=== PATIENT | male | born 1945 | race Caucasian/White ===

== ENCOUNTER 2020-12-25 13:30 | Inpatient (IN) | payer MEDICARE, OTHER ==
[~2020-12-25 13:30] MED LIST: PROPOFOL 200 MG/20 ML VIAL ONE
[2020-12-25 15:48] VITALS: BMI 24.5
[2020-12-25] MEDS ORDERED: Sotalol HCl 80 MG TAB PO SCH (18:00)
[2020-12-25] MEDS ORDERED: Bisacodyl 5 MG TAB PO PRN (18:20)
[2020-12-25] MEDS ORDERED: Calcium Carbonate 500 MG ChewTAB PO PRN (18:20)
[2020-12-25] MEDS ORDERED: Senokot S 8.6-50 MG TAB PO PRN (18:20)
[2020-12-25] MEDS ORDERED: Acetaminophen 325 MG TAB PO PRN (18:20)
[2020-12-25] MEDS ORDERED: Cefdinir 300 MG CAP PO SCH (20:00)
[2020-12-25] MEDS: ALPRAZolam 1 MG TAB PO SCH (21:12)
[2020-12-25] MEDS: Cefdinir 300 MG CAP PO SCH (21:12)
[2020-12-25] MEDS: Rosuvastatin 20 MG TAB PO SCH (21:12)
[2020-12-25] MEDS: Aspirin 81 mg Enteric Coated Tablet PO SCH (21:12)
[2020-12-25] MEDS: Gabapentin 400 MG CAP PO SCH (21:13)
[2020-12-25] MEDS: Loratadine 10 MG TAB PO SCH (21:13)
[2020-12-25] MEDS: Famotidine 20 MG TAB PO SCH (21:13)
[2020-12-25 23:06] LABS: #Eosinphils 0.5 thou/uL (0.0-0.7); #Lymphocytes 2.2 thou/uL (1.20-3.40); #Monocytes 0.6 thou/uL (0.11-0.59); #Neutrophils 2.6 thou/uL (1.40-6.50); %Basophils 0.6 % (0.0-1.0); %Eosinophils 7.9 % (0.0-10.0); %Lymphocytes 37.1 % (21.0-51.0); %Monocytes 10.2 % (0.0-10.0); %Neutrophils 44.3 % (42.0-75.0); Hemoglobin 12.3 g/dL (14.0-18.0); Mean Corpuscular HGB CONC 33.1 g/dL (32.0-36.0); Mean Corpuscular Hemoglobin 32.6 pg (27.0-31.0); Mean Corpuscular Volume 98.3 fL (78.0-98.0); Mean Platelet Volume 7.9 fL (7.4-10.4); Platelet Count 129 thou/uL (130-400); RBC Distribution Width 10.8 % (11.5-14.5); Red Blood Cell (RBC) Count 3.78 mill/uL (4.70-6.10); White Blood Cell (WBC) Count 5.8 thou/uL (4.8-10.8)
[2020-12-25 23:27] LABS: Anion Gap 12 mmol/L (10-20); BUN (Urea Nitrogen) 17 mg/dL (8.4-25.7); Calc. Creatinine Clearance 71 mL/min (70-130); Calcium 8.7 mg/dL (7.8-10.44); Carbon Dioxide 24 mmol/L (23-31); Chloride 106 mmol/L (98-107); Glucose 92 mg/dL (83-110); Potassium 4.2 mmol/L (3.5-5.1); Sodium 138 mmol/L (136-145)
[2020-12-26 04:20] LABS: SARS-CoV-2 PCR by NAA Not Detected (NotDetected)
[2020-12-26 05:08] LABS: Anion Gap 10 mmol/L (10-20); BUN (Urea Nitrogen) 15 mg/dL (8.4-25.7); Calc. Creatinine Clearance 71 mL/min (70-130); Calcium 8.5 mg/dL (7.8-10.44); Carbon Dioxide 26 mmol/L (23-31); Chloride 108 mmol/L (98-107); Glucose 99 mg/dL (83-110); Magnesium 2.2 mg/dL (1.6-2.6); Potassium 3.9 mmol/L (3.5-5.1); Sodium 140 mmol/L (136-145)
[2020-12-26] MEDS: Sotalol HCl 80 MG TAB PO SCH ×2 (05:23→16:09)
[2020-12-26] MEDS: Cefdinir 300 MG CAP PO SCH ×2 (08:09→19:48)
[2020-12-26] MEDS: Famotidine 20 MG TAB PO SCH ×2 (08:09→19:48)
[2020-12-26] MEDS ORDERED: Cefdinir 300 MG CAP PO SCH (09:00)
[2020-12-26] MEDS ORDERED: Potassium Chloride 20 MEQ TAB PO SCH (12:00)
[2020-12-26] MEDS: Aspirin 81 mg Enteric Coated Tablet PO SCH (19:48)
[2020-12-26] MEDS: Gabapentin 400 MG CAP PO SCH (19:48)
[2020-12-26] MEDS: ALPRAZolam 1 MG TAB PO SCH (19:48)
[2020-12-26] MEDS: Rosuvastatin 20 MG TAB PO SCH (19:48)
[2020-12-26] MEDS: Loratadine 10 MG TAB PO SCH (19:48)
[2020-12-27] MEDS ORDERED: Sodium Chloride 0.9% 250 ML IV SCH ×2 (04:30→05:15)
[2020-12-27] MEDS: Nitroglycerin 0.4 MG TAB (25 Tab Bottle) ONE ×3 (05:36→05:47)
[2020-12-27 05:50] LABS: Anion Gap 9 mmol/L (10-20); BUN (Urea Nitrogen) 18 mg/dL (8.4-25.7); Calc. Creatinine Clearance 54 mL/min (70-130); Calcium 8.7 mg/dL (7.8-10.44); Carbon Dioxide 27 mmol/L (23-31); Chloride 107 mmol/L (98-107); Glucose 124 mg/dL (83-110); Magnesium 2.2 mg/dL (1.6-2.6); Potassium 3.9 mmol/L (3.5-5.1); Sodium 139 mmol/L (136-145)
[2020-12-27 06:10] LABS: #Basophils 0.1 thou/uL (0.0-0.2); #Eosinphils 0.6 thou/uL (0.0-0.7); #Lymphocytes 2.1 thou/uL (1.20-3.40); #Monocytes 0.8 thou/uL (0.11-0.59); #Neutrophils 3.3 thou/uL (1.40-6.50); %Basophils 0.9 % (0.0-1.0); %Eosinophils 8.5 % (0.0-10.0); %Lymphocytes 31.2 % (21.0-51.0); %Monocytes 11.1 % (0.0-10.0); %Neutrophils 48.2 % (42.0-75.0); Hemoglobin 12.4 g/dL (14.0-18.0); Mean Corpuscular HGB CONC 34.2 g/dL (32.0-36.0); Mean Corpuscular Hemoglobin 33.4 pg (27.0-31.0); Mean Corpuscular Volume 97.6 fL (78.0-98.0); Mean Platelet Volume 7.8 fL (7.4-10.4); Platelet Count 145 thou/uL (130-400); RBC Distribution Width 10.9 % (11.5-14.5); Red Blood Cell (RBC) Count 3.71 mill/uL (4.70-6.10); White Blood Cell (WBC) Count 6.8 thou/uL (4.8-10.8)
[2020-12-27 06:13] LABS: Troponin I 0.013 ng/mL (< 0.028)
[2020-12-27] MEDS ORDERED: Sotalol HCl 80 MG TAB PO SCH ×2 (07:00→19:00)
[2020-12-27] MEDS: Famotidine 20 MG TAB PO SCH (08:05)
[2020-12-27] MEDS: Cefdinir 300 MG CAP PO SCH (08:08)
[2020-12-27 16:41] VITALS: BP 149/75; TEMP 97.8
== END 2020-12-27 17:25 | disposition home or self-care (01) | DRG 310 ==
LOC: 2NO 14:25
PROVIDERS: ADMIT Internal Medicine Cardiovascular Disease; ATTEND Internal Medicine
PROC: 5A2204Z Restoration of Cardiac Rhythm, Single (ICD-10-PCS; principal; 2020-12-27)
DX: I48.19 Other persistent atrial fibrillation (principal); G89.29 Other chronic pain; M54.9 Dorsalgia, unspecified; I95.89 Other hypotension; R01.1 Cardiac murmur, unspecified; I25.10 Atherosclerotic heart disease of native coronary artery without angina pectoris; R47.81 Slurred speech; I35.0 Nonrheumatic aortic (valve) stenosis; I10 Essential (primary) hypertension; Z20.822 Contact with and (suspected) exposure to COVID-19; I49.3 Ventricular premature depolarization; Z88.5 Allergy status to narcotic agent; Z88.8 Allergy status to other drugs, medicaments and biological substances; Z79.82 Long term (current) use of aspirin; Z95.1 Presence of aortocoronary bypass graft
CPT/HCPCS: 36415; 70450; 71045; 80048; 83735; 83880; 84484; 85025; 87635; 92960; 93005; 93010; 93306; J2704; U0003; U0005

== ENCOUNTER 2021-07-19 10:32 | Inpatient (IN) | payer MEDICARE, OTHER ==
[2021-07-19 11:34] LABS: #Eosinphils 0.4 thou/uL (0.0-0.7); #Lymphocytes 2.2 thou/uL (1.20-3.40); #Monocytes 0.7 thou/uL (0.11-0.59); #Neutrophils 4.8 thou/uL (1.40-6.50); %Basophils 0.1 % (0.0-1.0); %Eosinophils 5.3 % (0.0-10.0); %Lymphocytes 26.6 % (21.0-51.0); %Monocytes 8.9 % (0.0-10.0); %Neutrophils 59.1 % (42.0-75.0); Hemoglobin 12.6 g/dL (14.0-18.0); Mean Corpuscular HGB CONC 31.9 g/dL (32.0-36.0); Mean Corpuscular Hemoglobin 32.3 pg (27.0-31.0); Mean Platelet Volume 7.9 fL (7.4-10.4); Platelet Count 147 thou/uL (130-400); RBC Distribution Width 11.5 % (11.5-14.5); Red Blood Cell (RBC) Count 3.88 mill/uL (4.70-6.10); White Blood Cell (WBC) Count 8.1 thou/uL (4.8-10.8)
[2021-07-19 12:03] LABS: ALT (SGPT) 21 U/L (8-55); AST (SGOT) 27 U/L (5-34); Albumin 3.7 g/dL (3.4-4.8); Alkaline Phosphatase 54 U/L (40-110); Anion Gap 10 mmol/L (10-20); BUN (Urea Nitrogen) 14 mg/dL (8.4-25.7); Bilirubin, Total 0.5 mg/dL (0.2-1.2); Calc. Creatinine Clearance 0 mL/min (70-130); Calcium 9.4 mg/dL (7.8-10.44); Carbon Dioxide 28 mmol/L (23-31); Chloride 105 mmol/L (98-107); Globulin 3.2 g/dL (2.4-3.5); Glucose 63 mg/dL (83-110); Potassium 4.6 mmol/L (3.5-5.1); Protein, Total 6.9 g/dL (5.8-8.1); Sodium 138 mmol/L (136-145)
[2021-07-19] MEDS ORDERED: Nitroglycerin 0.4 MG TAB (25 Tab Bottle) SL PRN (14:17)
[2021-07-19] MEDS ORDERED: Aspirin 325 MG TAB PO SCH (14:30)
[2021-07-19] MEDS ORDERED: Aspirin 325 MG TAB ONE (15:04)
[2021-07-19 15:55] LABS: Troponin I Less than 0.010 ng/mL (< 0.028)
[2021-07-19 16:40] VITALS: BMI 24.0
[2021-07-19] MEDS ORDERED: FLU VACC QS2021-22(65YR UP)/PF 240 MCG/0.7 ML SYRINGE IM ONE (17:00)
[2021-07-19 17:47] LABS: Troponin I Less than 0.010 ng/mL (< 0.028)
[2021-07-19] MEDS ORDERED: Sotalol HCl 80 MG TAB PO SCH (20:15)
[2021-07-19 20:36] LABS: SARS-CoV-2 NAA Rapid Test Not Detected (NotDetected)
[2021-07-19] MEDS ORDERED: Gabapentin 400 MG CAP PO SCH (21:00)
[2021-07-19] MEDS ORDERED: ALPRAZolam 1 MG TAB PO SCH (21:00)
[2021-07-19] MEDS ORDERED: Rosuvastatin 20 MG TAB PO SCH (21:00)
[2021-07-20 05:54] LABS: Cardiac Risk 3.5 (Less than 4.5)
[2021-07-20] MEDS ORDERED: Sotalol HCl 80 MG TAB PO SCH (07:00)
[2021-07-20] MEDS ORDERED: Aspirin Chewable 81 MG TAB PO SCH (09:00)
[2021-07-20 16:09] VITALS: BP 109/63; TEMP 98.2
== END 2021-07-20 18:48 | disposition short-term general hospital (02) | DRG 307 ==
LOC: ERS 10:32 → 2SW 13:18 → OBSVTOIN 17:29
PROVIDERS: ADMIT Family Medicine; ATTEND Internal Medicine
DX: I08.3 Combined rheumatic disorders of mitral, aortic and tricuspid valves (principal); I42.9 Cardiomyopathy, unspecified; I25.110 Atherosclerotic heart disease of native coronary artery with unstable angina pectoris; Z20.822 Contact with and (suspected) exposure to COVID-19; I25.10 Atherosclerotic heart disease of native coronary artery without angina pectoris; I95.1 Orthostatic hypotension; I48.0 Paroxysmal atrial fibrillation; U09.9 Post COVID-19 condition, unspecified; E78.5 Hyperlipidemia, unspecified; K21.9 Gastro-esophageal reflux disease without esophagitis; I10 Essential (primary) hypertension; I25.5 Ischemic cardiomyopathy; G62.9 Polyneuropathy, unspecified; Z96.641 Presence of right artificial hip joint; F32.A Depression, unspecified; E78.00 Pure hypercholesterolemia, unspecified; Z28.21 Immunization not carried out because of patient refusal; Z95.1 Presence of aortocoronary bypass graft; Z95.0 Presence of cardiac pacemaker; Z88.6 Allergy status to analgesic agent; Z88.5 Allergy status to narcotic agent; Z88.8 Allergy status to other drugs, medicaments and biological substances; Z79.899 Other long term (current) drug therapy; Z79.82 Long term (current) use of aspirin; Z98.890 Other specified postprocedural states; Z86.73 Personal history of transient ischemic attack (TIA), and cerebral infarction without residual deficits
CPT/HCPCS: 36415; 71045; 80053; 80061; 82607; 82746; 84484; 85025; 93005; 93306; G0378; U0002

== ENCOUNTER 2022-05-16 07:48 | Outpatient (CLI) | payer MEDICARE, OTHER ==
[2022-05-16] MEDS ORDERED: Iopamidol 370 76% 100 ML VIAL ONE (14:01)
== END 2022-05-16 07:49 | disposition home or self-care (01) ==
LOC: CT 07:48
PROVIDERS: ATTEND Anesthesiology Pain Medicine
DX: R19.00 Intra-abdominal and pelvic swelling, mass and lump, unspecified site (principal); K76.0 Fatty (change of) liver, not elsewhere classified; K80.20 Calculus of gallbladder without cholecystitis without obstruction; N28.1 Cyst of kidney, acquired
CPT/HCPCS: 74177; Q9967

== ENCOUNTER 2022-07-29 09:20 | Outpatient (CLI) | payer MEDICARE, OTHER | END 2022-07-29 09:21 | disposition home or self-care (01) | LOC: NM 09:20 | PROVIDERS: ATTEND Anesthesiology Pain Medicine | DX: R63.4 Abnormal weight loss (principal) | CPT/HCPCS: 78306; A9503 ==

== ENCOUNTER 2023-08-08 15:41 | Outpatient (CLI) | payer MEDICARE, OTHER | END 2023-08-08 15:42 | disposition home or self-care (01) | LOC: BICCT 15:41 | PROVIDERS: ATTEND Anesthesiology Pain Medicine | DX: M43.16 Spondylolisthesis, lumbar region (principal); M48.061 Spinal stenosis, lumbar region without neurogenic claudication; M51.36 Other intervertebral disc degeneration, lumbar region; Z98.1 Arthrodesis status | CPT/HCPCS: 72131 ==